=== PATIENT | male | born 1950 | race Caucasian/White ===

== ENCOUNTER 2017-03-05 21:28 | Emergency (ER) | payer BC ==
[2017-03-05] MEDS ORDERED: NORMAL SALINE 1000 ML 1,000 ML IV ONE ×2 (23:09→23:58)
--- NOTE | 2017-03-05 23:10 | ER Document Report ---
ED Medical Screen (RME) - General Chief Complaint: Shortness Of Breath Stated Complaint: FEVER/DIFFICULTY BREATHING Time Seen by Provider: 03/05/17 22:59 Mode of Arrival: Wheelchair Information source: Patient Notes: Patient presents emergency department with shortness of breath diabetes reports a fever of 106 but did not take any kind of antipyretics. Reports his legs are sore and weak vomiting and diarrhea. Patient reports he felt pretty normal until he went fishing at approximately 1600 today. Patient is so weak he was incontinent of urine while trying to go to the restroom - Related Data Allergies/Adverse Reactions: No Known Allergies Allergy (Unverified 03/05/17 21:33) Past Medical History Renal/ Medical History: Denies: Hx Peritoneal Dialysis Physical Exam - Vital signs Vitals: Temp Pulse Resp BP Pulse Ox 100.7 F H 127 H 18 130/59 H 94 03/05/17 21:37 03/05/17 21:37 03/05/17 21:37 03/05/17 21:37 03/05/17 21:37 Course - Vital Signs Vital signs: Temp Pulse Resp BP Pulse Ox 100.7 F H 127 H 18 130/59 H 94 03/05/17 21:37 03/05/17 21:37 03/05/17 21:37 03/05/17 21:37 03/05/17 21:37 - Laboratory Result Diagrams: 03/05/17 23:35 03/05/17 23:35 Laboratory results interpreted by me: 03/05/17 03/05/17 03/05/17 21:38 23:35 23:35 RBC 4.20 L Hgb 11.4 L Hct 35.3 L RDW 18.2 H Seg Neutrophils % 83.9 H Lymphocytes % 7.1 L Absolute Lymphocytes 0.4 L Sodium 135.1 L Carbon Dioxide 19 L BUN 30 H Glucose 215 H POC Glucose 230 H Direct Bilirubin 0.5 H
--- NOTE | 2017-03-05 23:42 | ER Document Report ---
ED General - General Chief Complaint: Shortness Of Breath Stated Complaint: FEVER/DIFFICULTY BREATHING Time Seen by Provider: 03/05/17 22:59 Mode of Arrival: Wheelchair Notes: Patient is a 66-year-old male presents with complaint of fever and not feeling well. Patient says his daughter took a step at home and is 106. Has not given any antipyretics. When he got here he was 100.7. He has had vomiting and diarrhea for the last day and a half. Three days ago he started Invokana. Abdominal pain. He denies blood in his vomit or stool. He says when his fever is high felt short of breath but now that is improving. - Related Data Allergies/Adverse Reactions: No Known Allergies Allergy (Unverified 03/05/17 21:33) Past Medical History - General Information source: Patient - Social History Smoking Status: Unknown if Ever Smoked Frequency of alcohol use: None Drug Abuse: None Family History: Reviewed & Not Pertinent Renal/ Medical History: Denies: Hx Peritoneal Dialysis Review of Systems - Review of Systems Notes: My Normal Review Basic REVIEW OF SYSTEMS: CONSTITUTIONAL : Fever. EENT: Denies eye, ear, throat, or mouth pain or symptoms. Denies nasal or sinus congestion. CARDIOVASCULAR: Denies chest pain. RESPIRATORY: Some difficulty breathing. GASTROINTESTINAL: Denies abdominal pain. Vomiting and diarrhea. GENITOURINARY: Denies difficulty urinating, painful urination, burning, frequency, or blood in urine. MUSCULOSKELETAL: Denies neck or back pain or joint pain or swelling. SKIN: Denies rash or skin lesions. NEUROLOGICAL: Denies altered mental status or loss of consciousness. Denies headache. Denies weakness or paralysis or loss of use of either side. Denies problems with gait or speech. Denies sensory or motor loss. ALL OTHER SYSTEMS REVIEWED AND NEGATIVE. Physical Exam - Vital signs Vitals: Temp Pulse Resp BP Pulse Ox 100.7 F H 127 H 18 130/59 H 94 03/05/17 21:37 03/05/17 21:37 03/05/17 21:37 03/05/17 21:37 03/05/17 21:37 - Notes Notes: General Appearance: Well nourished, alert, cooperative, no acute distress, no obvious discomfort. Vitals: reviewed, See vital signs table. Head: no swelling or tenderness to the head Eyes: PERRL, EOMI, Conjuctiva clear Mouth: No decreasd moisture Throat: No tonsillar inflammation, No airway obstruction, No lymphadenopathy Neck: Supple, no neck tenderness, Lungs: No wheezing, No rales, No rhonci, No accessory muscle use, good air exchange bilaterally. Heart: Tachycardic rate, Regular rythm, No murmur, no rub Abdomen: Normal BS, soft, No rigidity, No abdominal tenderness, No guarding, no rebound, no abdominal masses, no organomegaly Extremities: strength 5/5 in all extremities, good pulses in all extremities, no swelling or tenderness in the extremities, no edema. Skin: warm, dry, appropriate color, no rash Neuro: speech clear, oriented x 3, normal affect, responds appropriately to questions. Course - Vital Signs Vital signs: Temp Pulse Resp BP Pulse Ox 98.7 F 127 H 29 H 104/64 92 03/06/17 02:39 03/05/17 21:37 03/06/17 02:01 03/06/17 02:00 03/06/17 02:01 - Laboratory Result Diagrams: 03/05/17 23:35 03/05/17 23:35 Laboratory results interpreted by me: 03/05/17 03/05/17 03/05/17 21:38 23:35 23:35 RBC 4.20 L Hgb 11.4 L Hct 35.3 L RDW 18.2 H Seg Neutrophils % 83.9 H Lymphocytes % 7.1 L Absolute Lymphocytes 0.4 L Sodium 135.1 L Carbon Dioxide 19 L BUN 30 H Glucose 215 H POC Glucose 230 H Direct Bilirubin 0.5 H Urine Glucose (UA) Urine Ketones 03/06/17 02:35 RBC Hgb Hct RDW Seg Neutrophils % Lymphocytes % Absolute Lymphocytes Sodium Carbon Dioxide BUN Glucose POC Glucose Direct Bilirubin Urine Glucose (UA) >=500 H Urine Ketones TRACE H - EKG Interpretation by Me Additional EKG results interpreted by me: 03/05/17 23:41 EKG is reviewed and interpreted by me. EKG shows sinus tachycardia with a rate of [address] segment elevation or depression. No ischemic T-wave inversions. DE interval, QRS duration, QTc intervals are within normal range. No old EKG available for comparison. - Transfer of Care Notes: 03/06/17 05:13 After the Tylenol the patient's fever is broken. After IV fluids his heart rate is normalized. He looks and feels much improved. I am not convinced that his temp was 106. Be very atypical for him to have a fever of 106 and not received any antipyretics and then it quickly dropped to 100.7. I suspect it may be that the mom are malfunctioned at home. Patient has no reproducible pain to palpation of his abdomen. I did obtain a CT scan of the abdomen due to the reported fever at home and the recurrent vomiting diarrhea. CT scan just showed gallstones but no evidence of cholecystitis. Remainder scan was negative. Patient laboratory evaluation is unremarkable. He does not have a leukocytosis. His chest x-ray is negative. He looks and feels much improved. I will have him hold the injection, because he has been having difficulty with vomiting diarrhea since starting this medication. I encouraged him to allow me to start him on long-acting insulin such as Lantus to help better control his blood sugar. Patient says he does not want to try anything that would require an injection at this time. He prefers to follow-up closely with his primary care doctor to discuss it further with him. Patient will be discharged home but is strongly encouraged to return to ER if he has recurrent vomiting, high fevers, any abdominal pain, or if he feels like he is worsening in any way. Patient agrees with plan will be discharged home. Dictation of this chart was performed using voice recognition software; therefore, there may be some unintended grammatical errors. Discharge - Discharge Clinical Impression: Vomiting Qualifiers: Vomiting type: unspecified Vomiting Intractability: unspecified Nausea presence : with nausea Qualified Code(s): R11.2 - Nausea with vomiting, unspecified Diarrhea Qualifiers: Diarrhea type: unspecified type Qualified Code(s): R19.7 - Diarrhea, unspecified Fever Qualifiers: Fever type: unspecified Qualified Code(s): R50.9 - Fever, unspecified Condition: Good Disposition: HOME, SELF-CARE Additional Instructions: Please stop taking the Invokana. Please call your doctor and inform them of your visit to the ER and the stopping of your Invokana. Please return to the ER immediately if you develop recurrent fevers, intractable vomiting, blood diarrhea, abdominal pain, or feel that you are worsening in any way. Please keep a close eye on your blood sugar. Please come to the ER if your blood sugar is consistently above 300. Prescriptions: Ondansetron [Zofran Odt 4 mg Tablet] 1 tab PO Q4H PRN #15 tab.rapdis PRN Reason: For Nausea/Vomiting Forms: Return to Work Referrals: VALDEMAR MOHAN MD [Primary Care Provider] - 03/08/17
[2017-03-05 23:54] LABS: ABSOLUTE LYMPHOCYTES (AUTO) 0.4 10^3/uL (0.5-4.7); ABSOLUTE MONOCYTES (AUTO) 0.5 10^3/uL (0.1-1.4); ABSOLUTE NEUT (AUTO) 4.8 10^3/uL (1.7-8.2); BASOPHILS % (AUTO) 0.8 % (0-2); EOSINOPHILS % (AUTO) 0.3 % (0-6); HEMATOCRIT 35.3 % (37.9-51.0); HEMOGLOBIN 11.4 g/dL (13.5-17.0); HGB HCT DIFFERENCE -1.1; LYMPHOCYTES % (AUTO) 7.1 % (13-45); MEAN CORPUSCULAR HEMOGLOBIN 27.1 pg (27.0-33.4); MEAN CORPUSCULAR HGB CONC 32.2 g/dL (32.0-36.0); MEAN CORPUSCULAR VOLUME 84 fl (80-97); MONOCYTES % (AUTO) 7.9 % (3-13); RED CELL DISTRIBUTION WIDTH 18.2 % (11.5-14.0); SEGMENTED NEUTROPHILS % (AUTO) 83.9 % (42-78); WHITE BLOOD COUNT 5.7 10^3/uL (4.0-10.5)
--- NOTE | 2017-03-05 23:56 | RADIOLOGY REPORT (SQ) ---
EXAM DESCRIPTION: CHEST SINGLE VIEW COMPLETED DATE/TIME: 03/05/2017 11:44 pm REASON FOR STUDY: weak, fever, n/v COMPARISON: None. EXAM PARAMETERS: NUMBER OF VIEWS: One view. TECHNIQUE: Single frontal radiographic view of the chest acquired. RADIATION DOSE: NA LIMITATIONS: None. FINDINGS: LUNGS AND PLEURA: No opacities, masses or pneumothorax. No pleural effusion. MEDIASTINUM AND HILAR STRUCTURES: No masses. Contour normal. HEART AND VASCULAR STRUCTURES: Heart normal in size. Normal vasculature. BONES: No acute findings. HARDWARE: None in the chest. OTHER: No other significant finding. IMPRESSION: NO ACUTE RADIOGRAPHIC FINDING IN THE CHEST. TECHNICAL DOCUMENTATION: JOB ID: [id number]
[2017-03-05] MEDS ORDERED: ACETAMINOPHEN 325 MG TABLET PO ONE (23:58)
[2017-03-05 23:59] LABS: ALANINE AMINOTRANSFERASE 37 U/L (21-72); ALBUMIN 3.5 g/dL (3.5-5.0); ALKALINE PHOSPHATASE 111 U/L (38-126); ANION GAP 16 (5-19); ASPARTATE AMINO TRANSFERASE 22 U/L (17-59); BILIRUBIN,DIRECT 0.5 mg/dL (0.0-0.4); BILIRUBIN,TOTAL 0.7 mg/dL (0.2-1.3); BLOOD UREA NITROGEN 30 mg/dL (7-20); CALCIUM 8.7 mg/dL (8.4-10.2); CARBON DIOXIDE 19 mmol/L (22-30); CHLORIDE 100 mmol/L (98-107); CREATINE KINASE 88 U/L (55-170); CREATININE RESULT 0.92 mg/dL (0.52-1.25); GLUCOSE 215 mg/dL (75-110); LIPASE 33.3 U/L (23-300); POTASSIUM 3.6 mmol/L (3.6-5.0); SODIUM 135.1 mmol/L (137-145); TOTAL PROTEIN 7.4 g/dL (6.3-8.2)
[2017-03-06 00:11] LABS: CREATINE KINASE MB 0.66 ng/mL (<4.55); TROPONIN I 0.014 ng/mL
[2017-03-06] MEDS ORDERED: NORMAL SALINE 1000 ML 1,000 ML IV ONE (02:39)
[2017-03-06 03:12] LABS: APPEARANCE,URINE SLIGHTLY-CLOUDY; BILIRUBIN,URINE NEGATIVE (NEGATIVE); GLUCOSE, URINE >=500 mg/dL (NEGATIVE); KETONES,URINE TRACE mg/dL (NEGATIVE); LEUKOCYTE ESTERASE,URINE NEGATIVE (NEGATIVE); NITRITE,URINE NEGATIVE (NEGATIVE); PROTEIN,URINE NEGATIVE (NEGATIVE); URINE SPECIFIC GRAVITY 1.025; UROBILINOGEN,URINE NEGATIVE mg/dL (<2.0)
--- NOTE | 2017-03-06 04:57 | RADIOLOGY REPORT (SQ) ---
EXAM DESCRIPTION: CT ABD/PELVIS WITH IV ONLY COMPLETED DATE/TIME: 03/06/2017 4:32 am REASON FOR STUDY: fever, diarrhea COMPARISON: CR, chest, 03/05/2017. TECHNIQUE: CT scan of the abdomen and pelvis performed using helical scanning technique with dynamic intravenous contrast injection. No oral contrast. Images reviewed with lung, soft tissue, and bone windows. Reconstructed coronal and sagittal MPR images reviewed. Delayed images for evaluation of the urinary system also acquired. All images stored on PACS. All CT scanners at this facility use dose modulation, iterative reconstruction, and/or weight based d osing when appropriate to reduce radiation dose to as low as reasonably achievable (ALARA). [facility]: Dose Right [facility]: CareDose [facility]: Dose Right [facility]: Teradose 4D [facility]: Tã Em Bé CONTRAST TYPE AND DOSE: contrast/concentration: Isovue 370.00 mg/ml; Total Contrast Delivered: 96.0 ml; Total Saline Delivered: 71.0 ml RENAL FUNCTION: Creatinine 0.9 RADIATION DOSE: Up-to-date CT equipment and radiation dose reduction techniques were employed. CTDIv ol: 15.1 - 17.4 mGy. DLP: 1800 mGy-cm.. LIMITATIONS: None. FINDINGS: LOWER CHEST: No significant findings. No nodules or infiltrates. LIVER: Normal size. No masses or dilated ducts. SPLEEN: Moderate splenomegaly. Splenic index is 1,673 cubic cm. PANCREAS: No masses. No significant calcifications. No adjacent inflammation or peripancreatic fluid collections. Pancreatic duct not dilated. GALLBLADDER: Gallstones. No inflammatory changes to suggest cholecystitis. ADRENAL GLANDS: No significant masses or asymmetry. RIGHT KIDNEY AND URETER: No solid masses. No significant calcifications. No hydronephrosis or hyd roureter. LEFT KIDNEY AND URETER: No solid masses. No significant calcifications. No hydronephrosis or hydr oureter. 3.2 cm exophytic simple cyst of the left kidney. AORTA AND VESSELS: No aneurysm. No dissection. Renal arteries, SMA, celiac without stenosis. RETROPERITONEUM: No retroperitoneal adenopathy, hemorrhage or masses. BOWEL AND PERITONEAL CAVITY: No masses or inflammatory changes. No free fluid or peritoneal masses. Mild nonspecific fluid distention of the jejunum measures 3.6 cm in diameter. APPENDIX: Normal. PELVIS: No mass or free fluid. Normal bladder. ABDOMINAL WALL: No masses. No hernias. BONES: Mild anterior vertebral wedging at the T10 should T12 levels. Mild L3 vertebral height loss. [id number] lumbosacral spondylosis, left more than right. OTHER: No other significant finding. IMPRESSION: Moderate splenomegaly. Cholelithiasis. TECHNICAL DOCUMENTATION: JOB ID: [id number] Quality ID # [id number]: Final reports with documentation of one or more dose reduction techniques (e.g., Au tomated exposure control, adjustment of the mA and/or kV according to patient size, use of iterative reconstruction technique) 2010 [employer]- All Rights Reserved
[2017-03-06 06:11] VITALS: BP 110/57
--- NOTE | 2017-03-06 07:53 | EKG REPORT ---
SEVERITY:- OTHERWISE NORMAL ECG - SINUS TACHYCARDIA LEFT AXIS DEVIATION : Confirmed by: Amy Aden 06-Mar-2017 07:52:11
== END 2017-03-06 05:50 | disposition home or self-care (01) ==
LOC: ER 21:28
DX: R50.9 Fever, unspecified (principal); R19.7 Diarrhea, unspecified; R11.2 Nausea with vomiting, unspecified; R06.02 Shortness of breath; R00.0 Tachycardia, unspecified; K80.20 Calculus of gallbladder without cholecystitis without obstruction
CPT/HCPCS: 93005; 99285; 96360; 96361; 36415; 82553; 82962; 82550; 83690; 85025; 80053; 81001; 84484; 87804; 71010; 74177; 93010; J7030 ×2

== ENCOUNTER → 2017-03-19 | Outpatient (CLI) | payer BC ==
--- NOTE | 2017-03-19 18:32 | XCELERA REPORT ---
[address] [address] Lower Extremity Venous Evaluation Name: DALLAS FERRIS Age: 66 yrs Gender: Male : 1950 Patient Status: Outpatient Patient Location: Study Date: 03/19/2017 04:30 PM Procedure: Color flow and duplex imaging of the veins of the left lower extremity as well as the right Common Femoral vein. Reason For Study: LLE PAIN SWELLING Ordering Physician: SUDHEER YANG Performed By: Ashia Bowling Right Sided Venous Evaluation The right common femoral vein is fully compressible. Spontaneous and phasic flow is present in the right common femoral vein. Left Sided Venous Evaluation Normal vessel filling wall to wall, compression and augmentation as well as Colour flow down to the infrageniculate veins. Interpretation Summary No duplex evidence of DVT or obstruction in the left lower extremity nor in the right Common Femoral vein. : SUDHEER YANG > Jeferson Escalona
== END ==
LOC: SP 16:17
PROVIDERS: ATTEND Podiatrist Foot & Ankle Surgery
DX: M79.605 Pain in left leg (principal); M79.89 Other specified soft tissue disorders
CPT/HCPCS: 93971